=== PATIENT | female | born 1950 | race Caucasian/White ===

== ENCOUNTER → 2019-02-02 06:51 | Outpatient (CLI) | payer BC, SELFPAY ==
--- NOTE | 2019-02-02 | DI.MRI.S_ITS ---
PROCEDURE: MR SHOULDER RT WO CON INDICATIONS: unspecified disease of synovium and tendon, right TECHNIQUE: Noncontrast oblique coronal T2 fast spin echo with fat saturation, oblique sagittal T1 spin echo and T2 fast spin echo with fat saturation, axial T1 spin echo and T2 fast spin echo with fat saturation through the shoulder. COMPARISON: None. FINDINGS: Image quality: Diagnostic. Rotator cuff: Thickening and increased signal is identified involving the supraspinatus and infraspinatus tendons with irregular intrasubstance low to moderate grade partial-thickness tearing at the level of the footprint. Propagation of this tear along the infraspinatus myotendinous junction appears to be present. The subscapularis and teres minor tendons are intact. There is no significant atrophy of the rotator cuff muscles. Bones and bursae: No acute fracture or dislocation is identified. No suspicious osseous lesion is appreciated. Mild degenerative cystic changes along the greater tuberosity of the humeral head are present. No glenohumeral joint effusion is evident. Moderate degenerative changes of the acromioclavicular joint are present there is mild lateral acromial downsloping. Thickening of the subacromial subdeltoid bursa is present and which contains a small amount of fluid. Capsule and soft tissues: Evaluation of the glenoid labrum and the glenohumeral ligaments is suboptimal without intra-articular contrast. No displaced labral tears are appreciated. No para labral cysts are evident. The long head of the biceps tendon is normally positioned within the bicipital groove. Thickening and mild increased signal involving this tendon is noted within its intra-articular course. IMPRESSION: 1. Low to moderate grade intrasubstance/delaminating partial-thickness tearing of the supraspinatus and infraspinatus tendons with corresponding moderate tendinopathy. 2. [id number] degenerative changes of the shoulder joints. 3. Mild tendinopathy involving the long head of the biceps tendon. 4. Mild lateral acromial downsloping and could potentially result in subacromial impingement, in the appropriate clinical setting. Minimal fluid is seen within the subacromial subdeltoid bursa. Dictated by: Epifanio Francisco M.D. on 02/02/2019 at 10:37 Approved by: Epifanio Francisco M.D. on 02/02/2019 at 10:40
== END ==
PROVIDERS: Visit Provider Orthopaedic Surgery
DX: M75.111 Incomplete rotator cuff tear or rupture of right shoulder, not specified as traumatic (principal); M67.921 Unspecified disorder of synovium and tendon, right upper arm
CPT/HCPCS: 73221

== ENCOUNTER → 2019-02-08 12:36 | Outpatient (CLI) | payer BC, SELFPAY ==
[2019-02-08 13:23] LABS: Influenza A - CEPHEID Flu A NEGATIVE (NEGATIVE); Influenza B - CEPHEID Flu B NEGATIVE (NEGATIVE)
== END ==
PROVIDERS: Visit Provider Nurse Practitioner
DX: R05 Cough (principal)
CPT/HCPCS: 87502

== ENCOUNTER → 2019-02-09 10:05 | Outpatient (CLI) | payer BC, SELFPAY ==
--- NOTE | 2019-02-09 10:09 | DI.RAD.S_ITS ---
PROCEDURE: XR CHEST 2V INDICATIONS: URI sxs, r/o bronchitis or pneumonia TECHNIQUE: 2 views of the chest were acquired. COMPARISON: None. FINDINGS: Surgical changes and devices: Right upper quadrant surgical clips. Lungs and pleura: Lungs are clear. No pleural effusions or pneumothorax. Mediastinum: Mediastinal contours are normal. Heart size is normal. Bones and chest wall: No suspicious bony abnormalities. Partially visualized chronic deformity of the right humerus. Soft tissues appear unremarkable. IMPRESSION: No acute cardiopulmonary disease Dictated by: Adelfo Barbosa M.D. on 02/09/2019 at 10:33 Approved by: Adelfo Barbosa M.D. on 02/09/2019 at 10:34
== END ==
PROVIDERS: Visit Provider Physician Assistant
DX: J06.9 Acute upper respiratory infection, unspecified (principal)
CPT/HCPCS: 71046

== ENCOUNTER → 2019-07-22 11:33 | Outpatient (CLI) | payer BC, SELFPAY ==
[2019-07-23 16:14] LABS: SARS CoV19 IgG Negative (Negative)
== END ==
PROVIDERS: PCP Nurse Practitioner Gerontology; Referring Provider Nurse Practitioner; Visit Provider Nurse Practitioner
DX: B99.9 Unspecified infectious disease (principal)
CPT/HCPCS: 36415; 86769

== ENCOUNTER → 2021-06-19 10:34 | Outpatient (CLI) | payer MEDICARE, BC, SELFPAY ==
--- NOTE | 2021-06-19 | DI.MRI.S_ITS ---
PROCEDURE: MR WRIST RT W CON INDICATIONS: ULNAR IMPACTION TECHNIQUE: After the administration of 3-4 mL of dilute intra-articular Gadolinium contrast into the radiocarpal compartment, coronal T1 spin echo with fat saturation and T2 fast spin echo with fat saturation, axial T1 spin echo and T2 fast spin echo with fat saturation, sagittal T1 spin echo with and without fat saturation through the wrist. COMPARISON: None. FINDINGS: Image quality: Excellent. Bones and cartilage: Moderate osteoarthritic changes throughout wrist joints are seen with extensive joint space narrowing, subchondral sclerosis. Nonspecific subcortical cystic changes versus bony erosion are seen involving distal radius, ulnar, lunate, capitate, hamate and trapezium. 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 No acute fracture or dislocation. No suspicious bony lesion. Carpal ligaments: Focal full-thickness perforation involving dorsal and central portion of scapholunate ligament is seen with gadolinium extravasation into the mid-carpal compartment. The lunotriquetral ligament is intact. The radioscaphocapitate and radiolunotriquetral ligaments appear intact. The arcuate ligament and short radiolunate ligament also appear normal. The dorsal intercarpal and radiotriquetral ligaments appear intact. On sagittal images, the pisohamate ligament appears intact. Triangular fibrocartilage complex: There is triangular fibrocartilage tear near its ulnar insertion with gadolinium extravasation into the distal radioulnar joint. The adjacent meniscal homolog appears normal. The ulnar collateral ligament appears intact. The extensor carpi ulnaris tendon is thickened with intrasubstance T2 hyperintense signal at the level of ulnar styloid. Tendons and soft tissues: The carpal tunnel structures appear normal, including the median nerve. The ulnar nerve appears normal within Guyon's canal. All six extensor tendon compartments demonstrate normal morphology, without pathologic tendon sheath fluid. No soft tissue ganglion cysts. IMPRESSION: 1. Moderate osteoarthritic changes throughout wrist joints with suggestion of prior surgical absence of trapezium, suggest clinical correlation. Nonspecific intraosseous T2 hyperintense areas in carpal bones, distal radius and ulnar as above concerning for erosion secondary to inflammatory arthropathy. No acute fracture or dislocation. 2. Suggestion of focal full-thickness perforation involving dorsal and central portion of scapholunate ligament with contrast extending to mid carpal component. Lunotriquetral ligament is intact. 3. Suggestion of TFCC tear near its ulnar insertion with contrast extending to distal radial ulnar joint. 4. Tendinosis and low to moderate grade intrasubstance partial-thickness tear involving extensor carpi ulnaris tendon at the level of ulnar styloid. Dictated by: Michele Beltran M.D. on 06/19/2021 at 14:09 Approved by: Michele Beltran M.D. on 06/19/2021 at 14:24
--- NOTE | 2021-06-19 | DI.RAD.S_ITS ---
PROCEDURE: FL WRIST INJECTION MR/CT RT INDICATIONS: ULNAR IMPACTION COMPARISON: [facility], MR, MR WRIST RT W CON, 06/19/2021, 11:17. [facility] [place], CR, XR WRIST 3+ VIEWS RIGHT, 05/30/2021, 12:17. TECHNIQUE: After informed consent had been obtained, the wrist was examined fluoroscopically, and a site chosen for injection of the radiocarpal compartment from a dorsal approach. Skin was prepped and draped in a sterile fashion and 1% lidocaine infiltrated from the skin down to the articular surface. A hypodermic needle was then introduced into the articular space and a modest amount of contrast medium was instilled confirming intra-articular needle tip placement. This was followed by approximately 5 mL of a dilute gadolinium solution. Needle was removed and dressing was applied. The patient experienced no complications throughout the procedure and left the fluoroscopic suite in no apparent distress. FINDINGS: A single fluoroscopic spot image demonstrates intra-articular location to injected iodinated contrast. IMPRESSION: Successful fluoroscopic-guided administration of dilute Gadolinium solution for wrist MR arthrogram. Dictated by: Frantz Briscoe M.D. on 06/19/2021 at 12:54 Approved by: Frantz Briscoe M.D. on 06/19/2021 at 12:56
== END ==
PROVIDERS: PCP Nurse Practitioner Gerontology; Referring Provider Orthopaedic Surgery; Visit Provider Orthopaedic Surgery
DX: S52.301P Unspecified fracture of shaft of right radius, subsequent encounter for closed fracture with malunion (principal); S56.811A Strain of other muscles, fascia and tendons at forearm level, right arm, initial encounter
CPT/HCPCS: 20605; 73222; 77002

== ENCOUNTER → 2021-08-07 15:32 | Outpatient (CLI) | payer MEDICARE, BC, SELFPAY ==
[2021-08-07 16:54] LABS: Add Manual Diff / Slide Review NO; Basophils Absolute Auto 100 /uL (0-100); Eosinophils Absolute Auto 200 /uL (0-450); Eosinophils Percent Auto 3.3 % (2-4); Hematocrit 34.6 % (36-46); Hemoglobin 12.1 g/dL (12.0-16.0); Lymphocytes Absolute Auto 1900 /uL (1100-4500); Lymphocytes Percent Auto 32.8 % (25-40); Mean Corpuscular Hemoglobin 36.1 PG (26-34); Mean Corpuscular Volume 103.2 fL (80-100); Monocytes Absolute Auto 500 /uL (0-900); Monocytes Percent Auto 8.5 % (3-14); Neutrophils Absolute Auto 3100 /uL (1500-7000); Neutrophils Percent Auto 54.4 % (50-75); Platelet Count 291 X10^3/uL (150-400); Red Blood Cell Count 3.35 X10^6/uL (4.0-5.2); Red Cell Distribution Width 12.6 % (11.6-14.8); White Blood Cell Count 5.7 X10^3/uL (4.5-11.0)
[2021-08-07 17:28] LABS: Alanine Aminotransferase 28 IU/L (<35); Albumin 4.4 g/dL (3.5-5.0); Albumin Globulin Ratio 1.8 (1.0-2.8); Alkaline Phosphatase 64 U/L (38-126); Aspartate Aminotransferase 30 IU/L (14-36); BUN Creatinine Ratio 22.7 (6-22); Bilirubin Total 0.4 mg/dL (0.2-1.3); Blood Urea Nitrogen 17 mg/dL (7-17); Calcium 8.9 mg/dL (8.4-10.2); Carbon Dioxide 31 mmol/L (22-32); Chloride 94 mmol/L (98-107); Estimated Glomerular Filt Rate > 60 mL/min (>60); Globulin 2.5 g/dL (1.7-4.1); Glucose 102 mg/dL (80-110); HEMOLYSIS < 15 (0-50); Sodium 132 mmol/L (137-145); Total Protein 6.9 g/dL (6.3-8.2)
[2021-08-07 18:16] LABS: Hep C Virus Ab w/Reflex Quant NEGATIVE s/c (NEGATIVE)
== END ==
PROVIDERS: PCP Nurse Practitioner Gerontology; Referring Provider Orthopaedic Surgery; Visit Provider Orthopaedic Surgery
DX: Z01.812 Encounter for preprocedural laboratory examination (principal); Z01.810 Encounter for preprocedural cardiovascular examination
CPT/HCPCS: 36415; 80053; 85025; 86803; 93005

== ENCOUNTER → 2024-11-05 13:00 | Outpatient (CLI) | payer MEDICARE, BC, SELFPAY ==
--- NOTE | 2024-11-05 13:02 | DI.US.S_ITS ---
PROCEDURE: US VENOUS INSUFFICIENCY BILAT INDICATIONS: Varicose veins of both LE with pain TECHNIQUE: Real time scanning was performed of the lower extremity venous system, with imaging documentation, as well as Color and pulse Doppler interrogation. COMPARISON: None. FINDINGS: RIGHT LOWER EXTREMITY: The deep veins are normally compressible, and free of intraluminal thrombus. Color and pulse Doppler demonstrate normal intravascular flow. There is normal augmentation with distal compression maneuver. Greater saphenous vein (GSV): Normally 4 mm or less in diameter, with any reflux less than 0.5 seconds. Saphenofemoral junction (SFJ): 4 mm. No reflux. Proximal GSV: 3 mm. No reflux. Mid GSV: 2 mm. No reflux. Distal GSV: 3 mm. No reflux. Calf GSV: 2 mm, Small saphenous vein (SSV): Posterior calf, draining into popliteal vein. Posterior calf: 3 mm. No reflux. Vein of Giacomini (posterior thigh connection between GSV and SSV): Anatomic variant not seen. LEFT LOWER EXTREMITY: The deep veins are normally compressible, and free of intraluminal thrombus. Color and pulse Doppler demonstrate normal intravascular flow. There is normal augmentation with distal compression maneuver. Greater saphenous vein (GSV): Normally 4 mm or less in diameter, with any reflux less than 0.5 seconds. Saphenofemoral junction (SFJ): 3 mm. No reflux. Proximal GSV: 3 mm. No reflux. Mid GSV: 3 mm. No reflux. Distal GSV: 2 mm. No reflux. Calf GSV: Nonvisualized Anterior accessory GSV (AAGSV): Anatomic variant not present across anterior thigh. Small saphenous vein (SSV): Posterior calf, draining into popliteal vein. No reflux. Vein of Giacomini (posterior thigh connection between GSV and SSV): Anatomic variant not seen. IMPRESSION: No venous reflux in the lower extremities. Approved by: Mario Horta M.D. on 11/05/2024 at 18:25
== END ==
LOC: US 13:01
PROVIDERS: PCP Student in an Organized Health Care Education/Training Program; Referring Provider Student in an Organized Health Care Education/Training Program; Visit Provider Student in an Organized Health Care Education/Training Program
DX: I83.813 Varicose veins of bilateral lower extremities with pain (principal); M79.604 Pain in right leg; R60.0 Localized edema
CPT/HCPCS: 93970

== ENCOUNTER → 2024-11-09 07:40 | Outpatient (CLI) | payer MEDICARE, BC, SELFPAY ==
--- NOTE | 2024-11-09 07:41 | DI.US.S_ITS ---
PROCEDURE: US ARTERIAL DUPLEX LE BI INDICATIONS: LOWER EXTREMITY PAIN TECHNIQUE: Color and pulse Doppler interrogation was performed of both lower extremity arterial systems, with image documentation. COMPARISON: None. FINDINGS: Right lower extremity: Common femoral artery: 140 cm/sec, with triphasic flow. Deep femoral artery: 69 cm/sec, with biphasic flow. Proximal superficial femoral artery: 90 cm/sec, with biphasic flow. Mid superficial femoral artery: 120 cm/sec, with triphasic flow. Distal superficial femoral artery: 77 cm/sec, with biphasic flow. Popliteal artery: 67 cm/sec, with biphasic flow. Posterior tibial artery: 52 cm/sec, with biphasic flow. Anterior tibial artery/dorsalis pedis: 55 cm/sec, with biphasic flow. Silverman-scale imaging description: Mild atherosclerotic plaque. Left lower extremity: Common femoral artery: 121 cm/sec, with triphasic flow. Deep femoral artery: 97 cm/sec, with triphasic flow. Proximal superficial femoral artery: 123 cm/sec, with triphasic flow. Mid superficial femoral artery: 122 cm/sec, with triphasic flow. Distal superficial femoral artery: 96 cm/sec, with triphasic flow. Popliteal artery: 59 cm/sec, with triphasic flow. Posterior tibial artery: 62 cm/sec, with monophasic flow. Anterior tibial artery/dorsalis pedis: 71 cm/sec, with biphasic flow. Silverman-scale imaging description: Mild atherosclerotic plaque. IMPRESSION: No hemodynamically significant stenosis based on peak systolic velocity criteria. Monophasic waveform in the posterior tibial artery, which may indicate infrapopliteal disease. Dictated by: Shubham Vaughan M.D. on 11/09/2024 at 9:35 Approved by: Shubham Vaughan M.D. on 11/09/2024 at 9:38
== END ==
PROVIDERS: PCP Student in an Organized Health Care Education/Training Program; Referring Provider Student in an Organized Health Care Education/Training Program; Visit Provider Student in an Organized Health Care Education/Training Program
DX: I73.9 Peripheral vascular disease, unspecified (principal); M79.604 Pain in right leg; R60.0 Localized edema
CPT/HCPCS: 93925